=== PATIENT | male | born 1940 | race Caucasian/White ===

== ENCOUNTER → 2016-07-28 | Outpatient (REF) | payer BC, MEDICARE ==
[~2016-07-28] MED LIST: ACET500C PO; ALBU83IN INH; AMLO5TAB2 PO; ASPI81TA85 PO; ATEN50TA2 PO; ATOR40TA PO; BREO1INH IN; CEFT250T8 PO; DOCU10CA PO; HYDR-4266 PO; HYDR50TAB PO; IPRASOL4 IN; ISOS30TA4 PO; LEVO500T32 PO; LEVO750T33 PO; LISI-538 PO; NORV5TAB PO; PANT40TA2 PO; PLAV75TA38 PO; PRED10TA PO; PRED20TA PO; PRED20TAB PO; PREDOPD OD; PROA1AER IN; PROL0.072 OD; SPIR12.9 INH; SYMB80INH INH; TENO1TAB4 PO; TYLE325T5 PO; ZEST1TAB7 PO
[2016-07-28 20:21] LABS: BASO # 0.1 K/mm3 (0.0-0.2); BASO % 1.3 % (0.0-1.0); EOS # 0.2 K/mm3 (0.0-0.50); EOS % 3.5 % (0.0-3.0); LARGE UNSTAINED CELL # 0.2 K/mm3 (0.0-0.4); LARGE UNSTAINED CELL % 2.3 % (0.0-4.0); LYMPH # 1.3 K/mm3 (1.5-4.5); LYMPH % 15.9 % (24.0-44.0); MEAN CORPUSCULAR HEMOGLOBIN 28.3 pg (27.0-33.0); MEAN CORPUSCULAR HGB CONC 31.4 g/dl (32.0-36.5); MEAN CORPUSCULAR VOLUME 89.9 fl (80.0-96.0); MONO # 0.4 K/mm3 (0.0-0.8); MONO % 6.1 % (0.0-5.0); PLATELET COUNT, AUTOMATED 266 k/mm3 (150-450); RED CELL DISTRIBUTION WIDTH 18.4 % (11.5-14.5); WHITE BLOOD COUNT 7.1 K/mm3 (4.0-10.0)
[2016-07-28 20:27] LABS: ALBUMIN 3.6 GM/DL (3.2-5.2); ALBUMIN/GLOBULIN RATIO 1.29 (1.00-1.93); BILIRUBIN,TOTAL 0.3 MG/DL (0.2-1.0); CALCIUM LEVEL 8.4 MG/DL (8.8-10.2); CREATININE FOR GFR 1.49 MG/DL (0.70-1.30); GLOMERULAR FILTRATION RATE 48.7 (>42); POTASSIUM SERUM 4.1 MEQ/L (3.5-5.1); TOTAL PROTEIN 6.4 GM/DL (6.4-8.2)
== END ==
LOC: M LABDRWAD 19:51
PROVIDERS: ATTEND Internal Medicine
DX: C67.9 Malignant neoplasm of bladder, unspecified (principal)

== ENCOUNTER → 2016-09-02 | Outpatient (REF) | payer BC ==
[2016-09-02 20:51] LABS: CALCIUM LEVEL 8.7 MG/DL (8.8-10.2); CREATININE FOR GFR 1.72 MG/DL (0.70-1.30); GLOMERULAR FILTRATION RATE 41.3 (>42); POTASSIUM SERUM 4.2 MEQ/L (3.5-5.1)
== END ==
LOC: M SFHCLERA 15:50
PROVIDERS: ATTEND Physician Assistant Medical
DX: R42 Dizziness and giddiness (principal); R53.1 Weakness

== ENCOUNTER → 2016-09-03 | Outpatient (CLI) | payer BC ==
--- NOTE | 2016-09-04 06:02 | REP ---
Clinical: Abdominal aortic aneurysm. Technique: Real time gustafson scale ultrasound examination using curved array transducer. Comparison: 11/07/2015. Findings: Ultrasound examination demonstrates stable infrarenal abdominal aortic aneurysm measuring 3.5 x 3.2 cm diameter and 4.5 cm in length. Aneurysm originates approximately 2-3 cm from the main renal arteries and terminates before the level of bifurcations common iliac arteries. No periaortic fluid or abnormalities are appreciated. Proximal aorta 2.4 x 3.3 cm. Mid aorta 3.5 x 3.2 cm. Distal aorta 2.2 x 2.0 cm. Right iliac artery 1.6 x 1.3 cm. Left iliac artery 1.4 x 1.3 cm. Impression: Stable infrarenal abdominal aortic aneurysm. Signed by Naren Zarate MD 09/04/2016 05:53 A
== END ==
LOC: M RAD 08:09
PROVIDERS: ATTEND Physician Assistant Medical
DX: I71.4 Abdominal aortic aneurysm, without rupture (principal)

== ENCOUNTER → 2016-09-04 | Outpatient (CLI) | payer BC ==
--- NOTE | 2016-09-04 12:08 | REP ---
REASON FOR EXAM: Back pain and lower extremity radicular symptoms. COMPARISON: None. There is loss of disc hydrational signal which is moderate at L3-4 with near complete loss of disc space signal at L4-5 and L5-S1 with moderate disc space height loss at those levels. The remainder of the disc spaces are well hydrated and of normal appearing height. There is no abnormal signal seen in the imaged portion of the spinal cord. Modic type I end plate changes are seen at the L4-5 level. At the L1-2 level, there is a slight broad based annular bulge. There is no disc herniation, foraminal narrowing or central canal stenosis. At the L2-3 level, there is a moderate broad based annular bulge which flattens and straightens the anterior thecal sac causing minimal central canal stenosis. There is no disc herniation or foraminal narrowing. Mild degenerative facet joint changes are present bilaterally. At the L3-4 level, there is a moderate to large broad based annular bulge which flattens and straightens the anterior thecal sac. This is seen in conjunction with degenerative facet joint changes bilaterally and thickening of the ligamentum flava which in concert are causing mild central canal stenosis. The broad based discogenic change is seen in conjunction with an annular rent, however, there is no disc extrusion. There is no neural foraminal narrowing. At the L4-5 level, there is a large asymmetric broad based annular bulge with a central focal subligamentous disc protrusion which causes a mild concave anterior deformity of the anterior thecal sac. This is seen in conjunction with degenerative facet joint changes bilaterally and thickening of the ligamentum flava. These factors in concert are causing bilateral foraminal stenosis, right greater than left being moderate with left foraminal stenosis being mild. Discogenic changes and arthritic facet joint changes are causing moderate to severe central canal stenosis. There is no evidence of extruded disc material. At the L5-S1 level, there is a large asymmetric broad based annular bulge which is contacting the exited L5 nerves and causing slight displacement of the left L5 nerve. The broad based bulge is seen in conjunction with a central focal subligamentous disc protrusion which is causing a mild concave anterior deformity of the anterior thecal sac. Degenerative facet joint changes are present at this level bilaterally with thickening of the ligamentum flava and the factors in concert are causing mild to moderate central canal stenosis. There is no evidence of a maxwell disc extrusion. IMPRESSION: Multilevel discogenic changes and related findings as described above. Signed by Cali Man DO 09/04/2016 12:29 P
--- NOTE | 2016-09-04 12:19 | REP ---
REASON FOR EXAM: Dizziness and confusion. No prior Brain MRIs for comparison. There is magnetic susceptibility artifact in the central frontal region due to a metallic imbedded in the skin and seen on previous CT of 06/02/2014. The examination was performed in my absentia and without my knowledge. The aforementioned magnetic susceptibility artifact obscures the midline frontal lobes on all sequences. The ventricles and sulci are within normal limits for the patient's age. There are no extra-axial fluid collections. There is no shift in the midline structures. Scattered T2 and FLAIR hypersignal intensities are seen in the deep cerebral white matter and paraventricular regions. These are nonspecific. No abnormal signal is seen on the DWI or ADC mapped imaged that would be considered consistent with an area of restricted effusion from an acute stroke. There is no evidence of a intracranial hemorrhage. The orbital and petrous structures, cerebellopontine angles, and posterior fossa are within normal limits. The sella turcica, cavernous and paracavernous structures are within normal limits. There is T2-hypersignal in the maxillary antra and sphenoid sinuses. The mastoid air cells appear clear. IMPRESSION: 1. Deep white matter ischemic changes suspected as described above. 2. Paranasal sinus disease with mucosal thickening. Correlate clinically to rule out the possibility of acute sinusitis. 3. Other findings as described above. Signed by Cali Man DO 09/04/2016 12:29 P
== END ==
LOC: M RAD 08:56
PROVIDERS: ATTEND Physician Assistant Medical
DX: R42 Dizziness and giddiness (principal); R53.1 Weakness; R20.2 Paresthesia of skin

== ENCOUNTER → 2016-11-21 | Outpatient (REF) | payer BC ==
[~2016-11-21] MED LIST changes: -ATOR40TA PO; +ATOR40TA75 PO; +HYDR-3910 PO; -HYDR-4266 PO; +LEVO500T3 PO; -LEVO500T32 PO; +LEVO750T13 PO; -LEVO750T33 PO; +PLAV1TAB2 PO; -PLAV75TA38 PO; -PROA1AER IN; +PROAAER10 IN
[2016-11-21 12:42] LABS: BASO # 0.1 K/mm3 (0.0-0.2); BASO % 1.2 % (0.0-1.0); EOS # 0.1 K/mm3 (0.0-0.50); EOS % 2.3 % (0.0-3.0); LARGE UNSTAINED CELL # 0.2 K/mm3 (0.0-0.4); LARGE UNSTAINED CELL % 3.1 % (0.0-4.0); LYMPH # 0.9 K/mm3 (1.5-4.5); LYMPH % 15.5 % (24.0-44.0); MEAN CORPUSCULAR HEMOGLOBIN 32.1 pg (27.0-33.0); MEAN CORPUSCULAR HGB CONC 33.1 g/dl (32.0-36.5); MONO # 0.3 K/mm3 (0.0-0.8); MONO % 5.6 % (0.0-5.0); NEUTROPHILS % 72.2 % (36.0-66.0); PLATELET COUNT, AUTOMATED 167 k/mm3 (150-450); RED CELL DISTRIBUTION WIDTH 18.8 % (11.5-14.5); WHITE BLOOD COUNT 5.5 K/mm3 (4.0-10.0)
[2016-11-21 13:12] LABS: ALBUMIN 3.8 GM/DL (3.2-5.2); ALBUMIN/GLOBULIN RATIO 1.46 (1.00-1.93); BILIRUBIN,TOTAL 0.4 MG/DL (0.2-1.0); CALCIUM LEVEL 8.8 MG/DL (8.8-10.2); CREATININE FOR GFR 1.25 MG/DL (0.70-1.30); GLOMERULAR FILTRATION RATE 59.5 (>42); POTASSIUM SERUM 4.2 MEQ/L (3.5-5.1); TOTAL PROTEIN 6.4 GM/DL (6.4-8.2)
== END ==
LOC: M SFHCADAM 07:52
PROVIDERS: ATTEND Physician Assistant Medical
DX: I25.10 Atherosclerotic heart disease of native coronary artery without angina pectoris (principal); N18.3 Chronic kidney disease, stage 3 (moderate); N18.9 Chronic kidney disease, unspecified; K21.9 Gastro-esophageal reflux disease without esophagitis

== ENCOUNTER → 2017-01-07 | Outpatient (CLI) | payer BC ==
--- NOTE | 2017-01-07 10:26 | REP ---
ULTRASOUND OF THE ABDOMINAL AORTA: Real-time sonographic evaluation of the abdominal aorta performed. Comparison 09/03/2016. Once again there is mild aneurysmal dilatation of the mid abdominal aorta maximum AP diameter 3.9 cm in transverse 3.3 cm. Findings are similar to the prior exam. More proximally just below the diaphragm is maximum AP diameter is 2.6 cm, at the level of the renal artery is 2.2 cm and distally 2.5 cm. Common iliac arteries are slightly ectatic both measuring 1.3 cm in maximum AP diameter. IMPRESSION: No significant change in the mild aneurysmal dilatation of the mid abdominal aorta compared to prior study of 09/03/2016. Signed by Ralf Fritz MD 01/07/2017 04:42 P
== END ==
LOC: M RAD 08:56
PROVIDERS: ATTEND Surgery
DX: I71.4 Abdominal aortic aneurysm, without rupture (principal)

== ENCOUNTER 2017-03-01 20:08 | Emergency (ER) | payer BC ==
[~2017-03-01] VITALS: Ht 172.7 cm; Wt 84.1 kg
[2017-03-01] MEDS ORDERED: CHLO25TA PO (20:24)
[2017-03-01] MEDS ORDERED: LEVO25TA5 (20:24)
[2017-03-01 20:43] LABS: MICROSCOPIC INDICATED? MAN YES (NO)
[2017-03-01 20:46] LABS: BACTERIA, URINE SMALL AMOUNT; HYALINE CAST, URINE NONE SEEN /lpf (0-1); MICROSCOPIC EXAM PERFORMED; RBC, URINE TNTC /hpf (0-3); SQUAMOUS EPITHELIAL CELL URINE NONE SEEN /hpf (SMALL AMT)
[2017-03-01 21:04] LABS: BASO # 0.1 10^3/uL (0.0-0.2); EOS # 0.2 10^3/uL (0.0-0.50); EOS % 2.1 % (0.0-3.0); IMMATURE GRANULOCYTE % 0.3 % (0-0); LYMPH % 10.6 % (24.0-44.0); MEAN CORPUSCULAR HEMOGLOBIN 33.8 pg (27.0-33.0); MEAN CORPUSCULAR HGB CONC 32.4 g/dl (32.0-36.5); MEAN CORPUSCULAR VOLUME 104.3 fl (80.0-96.0); MONO # 0.6 10^3/uL (0.0-0.8); MONO % 6.6 % (0.0-5.0); NEUTROPHILS # 7.6 10^3/uL (1.8-7.7); NEUTROPHILS % 79.4 % (36.0-66.0); PLATELET COUNT, AUTOMATED 181 10^3/uL (150-450); RED CELL DISTRIBUTION WIDTH 14.9 % (11.5-14.5); WHITE BLOOD COUNT 9.6 10^3/uL (4.0-10.0)
[2017-03-01 21:15] LABS: INR 0.93
[2017-03-01 21:24] LABS: ANION GAP 4 MEQ/L (8-16); BLOOD UREA NITROGEN 26 MG/DL (7-18); CALCIUM LEVEL 8.6 MG/DL (8.8-10.2); CARBON DIOXIDE LEVEL 28 MEQ/L (21-32); CHLORIDE LEVEL 113 MEQ/L (98-107); CREATININE FOR GFR 1.22 MG/DL (0.70-1.30); GLOMERULAR FILTRATION RATE > 60.0 (>42); GLUCOSE, FASTING 117 MG/DL (83-110); SODIUM LEVEL 145 MEQ/L (136-145)
--- NOTE | 2017-03-01 22:30 | REPUSA ---
CT of the abdomen and pelvis without contrast Clinical statement: Pain. Technique: Multiple axial CT images were obtained from the base of the lungs to the floor of the pelv is utilizing 5 mm axial slices without administration of contrast. Coronal and sagittal reconstructio ns were also obtained. Comparison: 10/11/2015. Findings: Chest: The visualized lung bases are clear. Abdomen: The kidneys are normal in size bilaterally. There is a hyperdense lesion in the upper pole o f the left kidney measuring 2.0 x 1.8 cm. There is no evidence of hydronephrosis or nephrolithiasis. The liver, spleen, pancreas, gallbladder and adrenal glands are unremarkable. The aorta demonstrates an infrarenal abdominal aortic aneurysm measuring 3.3 x 3.3 cm. This is stable. There is no abdominal lymphadenopathy or ascites. Pelvis: The bowel is unremarkable, with no obstructive or inflammatory changes. The urinary bladder i s within normal limits. There is no pelvic lymphadenopathy or ascites. The other pelvic structures ap pear unremarkable. Bones: There are no suspicious osseous abnormalities seen. There is moderate degenerative disc diseas e at L4/L5 and L5/S1. Impression: 1. No obstructive or inflammatory bowel changes. 2. Hyperdense lesion in the upper pole of the left kidney is stable, most consistent with a complex r enal cyst. No evidence of hydronephrosis or nephrolithiasis. 3. Infrarenal abdominal aortic aneurysm measuring up to 3.3 cm and is stable. 4. Moderate degenerative disc disease at L4/L5 and L5/S1.
[2017-03-01] MEDS ORDERED: BACT800T5 PO (23:25)
[2017-03-01] MEDS ORDERED: PHEN-500 PO (23:25)
[2017-03-01] MEDS ORDERED: PHENAZOPYRIDINE 100 MG TAB PO ONE (23:30)
[2017-03-01] MEDS ORDERED: BACTRIM 160MG/800MG DS TAB PO ONE (23:30)
[2017-03-01 23:31] VITALS: BP 157/60
== END 2017-03-01 23:49 | disposition home or self-care (01) ==
LOC: M ED 20:08
DX: N39.0 Urinary tract infection, site not specified (principal); R31.9 Hematuria, unspecified; I12.9 Hypertensive chronic kidney disease with stage 1 through stage 4 chronic kidney disease, or unspecified chronic kidney disease; J44.9 Chronic obstructive pulmonary disease, unspecified; I25.9 Chronic ischemic heart disease, unspecified; K21.9 Gastro-esophageal reflux disease without esophagitis; N18.2 Chronic kidney disease, stage 2 (mild); E03.9 Hypothyroidism, unspecified; N40.1 Benign prostatic hyperplasia with lower urinary tract symptoms; Z85.46 Personal history of malignant neoplasm of prostate; Z85.51 Personal history of malignant neoplasm of bladder; Z95.5 Presence of coronary angioplasty implant and graft; Z79.899 Other long term (current) drug therapy; Z79.82 Long term (current) use of aspirin; F17.210 Nicotine dependence, cigarettes, uncomplicated

== ENCOUNTER → 2017-03-04 | Outpatient (CLI) | payer BC ==
[~2017-03-04] MED LIST changes: +BACT800T5 PO; +CHLO25TA PO; +LEVO25TA5; +PHEN-500 PO
--- NOTE | 2017-03-05 07:14 | REP ---
REASON FOR EXAM: Renal cysts. Right kidney measures 11.2 x 4.8 x 6 cm. There are no cystic or solid masses. There is no hydronephrosis. Cortical and medullary differentiation is preserved. Left kidney measures 11.2 x 4.9 x 5.2 cm. There are no solid masses. There is no hydronephrosis. There is good medullary differentiation. Seen in the superior pole, there is a nearly anechoic structure which measures 2.2 x 1.8 x 1.8 cm exhibiting some posterior wall enhancement and increased through transmission. When this examination is compared to the prior examination of 10/09/2015, there is no significant change in the appearance of this somewhat complex cyst. IMPRESSION: No significant change from the prior exam as described above. Signed by Cali Man DO 03/06/2017 01:53 P
== END ==
LOC: M RAD 16:29
PROVIDERS: ATTEND Urology
DX: N28.1 Cyst of kidney, acquired (principal)

== ENCOUNTER → 2017-05-18 | Outpatient (REF) | payer BC ==
[2017-05-18 20:41] LABS: FREE T4 1.17 NG/DL (0.76-1.46)
== END ==
LOC: M SFHCADAM 15:53
DX: E03.9 Hypothyroidism, unspecified (principal)
CPT/HCPCS: 84443

== ENCOUNTER → 2017-11-19 | Outpatient (REF) | payer BC ==
[2017-11-19 18:56] LABS: ALBUMIN 3.4 GM/DL (3.2-5.2); ALBUMIN/GLOBULIN RATIO 1.31 (1.00-1.93); ALKALINE PHOSPHATASE 71 U/L (45-117); ALT/SGPT 18 U/L (12-78); ANION GAP 10 MEQ/L (8-16); AST/SGOT 12 U/L (7-37); BILIRUBIN,TOTAL 0.4 MG/DL (0.2-1.0); BLOOD UREA NITROGEN 30 MG/DL (7-18); CALCIUM LEVEL 9.1 MG/DL (8.8-10.2); CARBON DIOXIDE LEVEL 24 MEQ/L (21-32); CHLORIDE LEVEL 115 MEQ/L (98-107); CREATININE FOR GFR 1.41 MG/DL (0.70-1.30); FREE T4 1.18 NG/DL (0.76-1.46); GLOMERULAR FILTRATION RATE 51.6 (>42); GLUCOSE, FASTING 94 MG/DL (70-100); POTASSIUM SERUM 4.1 MEQ/L (3.5-5.1); SODIUM LEVEL 149 MEQ/L (136-145)
[2017-11-19 20:08] LABS: BASO # 0.1 10^3/uL (0.0-0.2); BASO % 1.1 % (0.0-1.0); EOS # 0.1 10^3/uL (0.0-0.50); HEMOGLOBIN 8.5 g/dl (13.5-17.5); IMMATURE GRANULOCYTE % 0.3 % (0-3.0); LYMPH # 0.8 10^3/uL (1.5-4.5); LYMPH % 12.1 % (24.0-44.0); MEAN CORPUSCULAR HEMOGLOBIN 30.7 pg (27.0-33.0); MEAN CORPUSCULAR HGB CONC 30.4 g/dl (32.0-36.5); MEAN CORPUSCULAR VOLUME 101.1 fl (80.0-96.0); MONO # 0.5 10^3/uL (0.0-0.8); MONO % 7.6 % (0.0-5.0); NEUTROPHILS % 76.9 % (36.0-66.0); PLATELET COUNT, AUTOMATED 157 10^3/uL (150-450); RED BLOOD COUNT 2.77 10^6/uL (4.30-6.10); RED CELL DISTRIBUTION WIDTH 17.4 % (11.5-14.5); WHITE BLOOD COUNT 6.5 10^3/uL (4.0-10.0)
== END ==
LOC: M SFHCADAM 16:22
DX: E03.9 Hypothyroidism, unspecified (principal)
CPT/HCPCS: 84443

== ENCOUNTER 2017-11-23 14:47 | Inpatient (IN) | payer BC ==
[2017-11-23 15:47] LABS: BASO % 0.1 % (0.0-1.0); HEMATOCRIT 27.7 % (42.0-52.0); HEMOGLOBIN 8.5 g/dl (13.5-17.5); IMMATURE GRANULOCYTE % 0.6 % (0-3.0); LYMPH % 2.9 % (24.0-44.0); MEAN CORPUSCULAR HEMOGLOBIN 31.4 pg (27.0-33.0); MEAN CORPUSCULAR HGB CONC 30.7 g/dl (32.0-36.5); MEAN CORPUSCULAR VOLUME 102.2 fl (80.0-96.0); MONO # 0.3 10^3/uL (0.0-0.8); MONO % 3.6 % (0.0-5.0); NEUTROPHILS # 7.4 10^3/uL (1.8-7.7); NEUTROPHILS % 92.8 % (36.0-66.0); PLATELET COUNT, AUTOMATED 170 10^3/uL (150-450); RED BLOOD COUNT 2.71 10^6/uL (4.30-6.10); RED CELL DISTRIBUTION WIDTH 17.3 % (11.5-14.5)
[2017-11-23] MEDS ORDERED: GI COCKTAIL 50ML BTL(HYOSCYAMINE/MAALOX/LIDOCAINE VISCOUS)(1:3:1) As Ordered (15:50)
[2017-11-23 16:04] LABS: LYMPH # 0.2 10^3/uL (1.5-4.5); POSITIVE DIFF POS FLAG
[2017-11-23 16:11] LABS: INR 1.07
[2017-11-23 16:12] LABS: PARTIAL THROMBOPLASTIN TIME 28.1 SECONDS (25.4-37.6)
[2017-11-23 17:17] LABS: ALBUMIN 3.4 GM/DL (3.2-5.2); ALKALINE PHOSPHATASE 71 U/L (45-117); ALT/SGPT 23 U/L (12-78); ANION GAP 8 MEQ/L (8-16); AST/SGOT 15 U/L (7-37); BILIRUBIN,DIRECT 0.2 MG/DL (0.0-0.2); BILIRUBIN,TOTAL 0.5 MG/DL (0.2-1.0); BLOOD UREA NITROGEN 32 MG/DL (7-18); CALCIUM LEVEL 8.6 MG/DL (8.8-10.2); CARBON DIOXIDE LEVEL 24 MEQ/L (21-32); CHLORIDE LEVEL 113 MEQ/L (98-107); CPK CREATINE PHOSPHOKINASE 94 U/L (39-308); CREATININE FOR GFR 1.27 MG/DL (0.70-1.30); GLOMERULAR FILTRATION RATE 58.2 (>42); MB/CK RELATIVE INDEX 4.04 (< OR =4); NT-PRO BNP 5533 PG/ML (<450); POTASSIUM SERUM 4.3 MEQ/L (3.5-5.1); SODIUM LEVEL 145 MEQ/L (136-145); THYROXINE (T4) 10.1 UG/DL (4.5-12.0); TOTAL PROTEIN 6.6 GM/DL (6.4-8.2); TROPONIN I 0.77 NG/ML (< 0.10)
[2017-11-23 17:20] LABS: LACTIC ACID SEPSIS PROTOCOL 2.1 MMOL/L (0.4-2.0)
[2017-11-23 17:41] LABS: GLUCOSE, FASTING 89 MG/DL (70-100)
[2017-11-23 18:16] LABS: LIPASE 113 U/L (73-393)
[2017-11-23 18:17] LABS: ALBUMIN/GLOBULIN RATIO 1.06 (1.00-1.93)
[2017-11-23 20:15] LABS: CPK CREATINE PHOSPHOKINASE 88 U/L (39-308); MAGNESIUM LEVEL 2.5 MG/DL (1.8-2.4); MB/CK RELATIVE INDEX 4.32 (< OR =4); TROPONIN I 0.81 NG/ML (< 0.10)
[2017-11-23] MEDS: ALBUTEROL SULFATE 2.5 MG/0.5 ML INH NEB SOLN INH (20:58)
[2017-11-23] MEDS: FUROSEMIDE 40 MG/4 ML VIAL (J1940) IV (21:10)
[2017-11-23] MEDS: ASPIRIN 325 MG TAB PO (21:10)
[2017-11-23] MEDS: methylPREDNISolone INJ 125 MG/2 ML VIAL (J2930) IV (21:15)
[2017-11-24 01:37] LABS: CPK CREATINE PHOSPHOKINASE 89 U/L (39-308); MB/CK RELATIVE INDEX 5.39 (< OR =4); TROPONIN I 0.93 NG/ML (< 0.10)
[2017-11-24] MEDS ORDERED: ACETAMINOPHEN TAB 650MG DOSE (2X325MG) PO (03:15)
[2017-11-24] MEDS: MULTIVITAMINS/MINERALS THERAP 1 TAB PO ×2 (05:25→20:30)
[2017-11-24] MEDS: FERROUS SULFATE 325MG TAB PO (05:25)
[2017-11-24 07:34] LABS: HEMATOCRIT 27.6 % (42.0-52.0); HEMOGLOBIN 8.5 g/dl (13.5-17.5); MEAN CORPUSCULAR HEMOGLOBIN 31.3 pg (27.0-33.0); MEAN CORPUSCULAR HGB CONC 30.8 g/dl (32.0-36.5); MEAN CORPUSCULAR VOLUME 101.5 fl (80.0-96.0); PLATELET COUNT, AUTOMATED 173 10^3/uL (150-450); RED BLOOD COUNT 2.72 10^6/uL (4.30-6.10); RED CELL DISTRIBUTION WIDTH 17.1 % (11.5-14.5); WHITE BLOOD COUNT 5.3 10^3/uL (4.0-10.0)
[2017-11-24] MEDS: IPRATROPIUM 0.5MG/ALBUTEROL 2.5MG INH SOL UD 3ML (DUONEB)(J7620) NEB ×4 (07:59→20:18)
[2017-11-24 08:31] LABS: ANION GAP 8 MEQ/L (8-16); BLOOD UREA NITROGEN 32 MG/DL (7-18); CALCIUM LEVEL 8.4 MG/DL (8.8-10.2); CARBON DIOXIDE LEVEL 26 MEQ/L (21-32); CHLORIDE LEVEL 109 MEQ/L (98-107); GLOMERULAR FILTRATION RATE 56.7 (>42); GLUCOSE, FASTING 137 MG/DL (70-100); IRON (FE) 81 UG/DL (65-175); MAGNESIUM LEVEL 2.3 MG/DL (1.8-2.4); POTASSIUM SERUM 4.2 MEQ/L (3.5-5.1); SODIUM LEVEL 143 MEQ/L (136-145); TOTAL IRON BINDING CAPACITY 270 UG/DL (250-450)
[2017-11-24 08:32] LABS: CPK CREATINE PHOSPHOKINASE 83 U/L (39-308)
[2017-11-24 08:38] LABS: ADD MANUAL DIFFER YES; DIFF SLIDE NUMBER 116; POSITIVE DIFF POS FLAG
[2017-11-24 08:41] LABS: ATYPICAL LYMPH 2 % (0-5); LYMPHOCYTES 5 % (16-52); MONOCYTES 1 % (0-8); NEUTROPHILS 92 % (35-75); PLATELET ESTIMATE NORMAL (NORMAL)
[2017-11-24 08:42] LABS: HYPOCHROMASIA 1+; POLYCHROMASIA 1+; SCHISTOCYTES 1+
[2017-11-24] MEDS ORDERED: ALBUTEROL SULFATE 2.5 MG/0.5 ML INH NEB SOLN INH (09:00)
[2017-11-24] MEDS ORDERED: PANTOPRAZOLE 40MG TAB (PROTONIX) PO (09:00)
[2017-11-24] MEDS: ATORVASTATIN 20 MG TAB PO (10:12)
[2017-11-24] MEDS: ASPIRIN 81 MG ENTERIC TAB PO (10:12)
[2017-11-24] MEDS: PANTOPRAZOLE 40MG TAB (PROTONIX) PO (10:13)
[2017-11-24] MEDS: LEVOTHYROXINE 50MCG TABLET (0.05MG) PO (10:13)
[2017-11-24] MEDS: INDAPAMIDE 1.25MG TABLET PO (10:13)
[2017-11-24] MEDS: FUROSEMIDE 40 MG/4 ML VIAL (J1940) IV ×2 (10:14→20:31)
[2017-11-24] MEDS: CLOPIDOGREL 75 MG TAB PO (10:14)
[2017-11-24 17:20] LABS: RETIC HEMOGLOBIN EQUIVALENT 24.1 pg (24-36); RETICULOCYTE # 148.2 10^9/L (17-77); RETICULOCYTE % 5.4 % (0.5-1.5)
[2017-11-24 17:49] LABS: CPK CREATINE PHOSPHOKINASE 73 U/L (39-308); MB/CK RELATIVE INDEX 5.21 (< OR =4); TROPONIN I 1.08 NG/ML (< 0.10)
[2017-11-24] MEDS: BISACODYL 5 MG TAB PO (18:33)
[2017-11-24] MEDS: PANTOPRAZOLE 40MG INJ (PROTONIX) (C9113) IV (20:31)
[2017-11-24] MEDS: GOLYTELY SOLN 4000 ML BTL PO (20:31)
[2017-11-25 05:41] LABS: BASO % 0.4 % (0.0-1.0); EOS % 0.2 % (0.0-3.0); HEMATOCRIT 27.3 % (42.0-52.0); HEMOGLOBIN 8.5 g/dl (13.5-17.5); IMMATURE GRANULOCYTE % 0.5 % (0-3.0); LYMPH # 0.7 10^3/uL (1.5-4.5); LYMPH % 7.8 % (24.0-44.0); MEAN CORPUSCULAR HEMOGLOBIN 30.4 pg (27.0-33.0); MEAN CORPUSCULAR HGB CONC 31.1 g/dl (32.0-36.5); MEAN CORPUSCULAR VOLUME 97.5 fl (80.0-96.0); MONO # 0.7 10^3/uL (0.0-0.8); MONO % 7.2 % (0.0-5.0); NEUTROPHILS % 83.9 % (36.0-66.0); PLATELET COUNT, AUTOMATED 187 10^3/uL (150-450); RED CELL DISTRIBUTION WIDTH 16.6 % (11.5-14.5); WHITE BLOOD COUNT 9.5 10^3/uL (4.0-10.0)
[2017-11-25 05:56] LABS: ANION GAP 6 MEQ/L (8-16); BLOOD UREA NITROGEN 38 MG/DL (7-18); CALCIUM LEVEL 8.6 MG/DL (8.8-10.2); CARBON DIOXIDE LEVEL 30 MEQ/L (21-32); CHLORIDE LEVEL 107 MEQ/L (98-107); CREATININE FOR GFR 1.61 MG/DL (0.70-1.30); GLOMERULAR FILTRATION RATE 44.3 (>42); GLUCOSE, FASTING 95 MG/DL (70-100); POTASSIUM SERUM 3.4 MEQ/L (3.5-5.1); SODIUM LEVEL 143 MEQ/L (136-145)
[2017-11-25] MEDS: IPRATROPIUM 0.5MG/ALBUTEROL 2.5MG INH SOL UD 3ML (DUONEB)(J7620) NEB ×4 (07:29→20:40)
[2017-11-25] MEDS: INFLUENZA VIRUS VACCINE HIGH DOSE 0.5 ML SYRINGE (90662) IM (09:00)
[2017-11-25] MEDS ORDERED: SLF 3 ML SYR IV (09:00)
[2017-11-25] MEDS: LEVOTHYROXINE 50MCG TABLET (0.05MG) PO (10:15)
[2017-11-25] MEDS: ATORVASTATIN 20 MG TAB PO (10:15)
[2017-11-25] MEDS: PANTOPRAZOLE 40MG INJ (PROTONIX) (C9113) IV ×2 (10:15→21:04)
[2017-11-25 11:42] LABS: TROPONIN I 0.99 NG/ML (< 0.10)
[2017-11-25] MEDS: SLF 3 ML SYR IV ×2 (14:00→22:00)
[2017-11-25] MEDS ORDERED: fentaNYL 100 MCG/2 ML INJECTION (J3010) As Ordered (14:28)
[2017-11-25] MEDS ORDERED: PROPOFOL 200 MG/20 ML VIAL As Ordered ×2 (14:39→15:24)
[2017-11-25] MEDS ORDERED: LIDOCAINE 2% INJ 100 MG/5 ML SDV (FOR ANES.) As Ordered (14:39)
[2017-11-25] MEDS: MULTIVITAMINS/MINERALS THERAP 1 TAB PO (21:04)
[2017-11-26] MEDS: SLF 3 ML SYR IV ×4 (05:05→21:26)
[2017-11-26 06:03] LABS: BASO % 0.7 % (0.0-1.0); EOS # 0.1 10^3/uL (0.0-0.50); EOS % 1.5 % (0.0-3.0); HEMATOCRIT 26.9 % (42.0-52.0); HEMOGLOBIN 8.3 g/dl (13.5-17.5); IMMATURE GRANULOCYTE % 0.4 % (0-3.0); LYMPH # 0.7 10^3/uL (1.5-4.5); LYMPH % 11.8 % (24.0-44.0); MEAN CORPUSCULAR HEMOGLOBIN 30.1 pg (27.0-33.0); MEAN CORPUSCULAR HGB CONC 30.9 g/dl (32.0-36.5); MEAN CORPUSCULAR VOLUME 97.5 fl (80.0-96.0); MONO # 0.5 10^3/uL (0.0-0.8); MONO % 8.5 % (0.0-5.0); NEUTROPHILS # 4.2 10^3/uL (1.8-7.7); NEUTROPHILS % 77.1 % (36.0-66.0); PLATELET COUNT, AUTOMATED 171 10^3/uL (150-450); RED BLOOD COUNT 2.76 10^6/uL (4.30-6.10); RED CELL DISTRIBUTION WIDTH 16.3 % (11.5-14.5); WHITE BLOOD COUNT 5.5 10^3/uL (4.0-10.0)
[2017-11-26 06:46] LABS: ANION GAP 4 MEQ/L (8-16); BLOOD UREA NITROGEN 27 MG/DL (7-18); CALCIUM LEVEL 8.2 MG/DL (8.8-10.2); CARBON DIOXIDE LEVEL 31 MEQ/L (21-32); CHLORIDE LEVEL 107 MEQ/L (98-107); CREATININE FOR GFR 1.25 MG/DL (0.70-1.30); GLOMERULAR FILTRATION RATE 59.3 (>42); GLUCOSE, FASTING 87 MG/DL (70-100); POTASSIUM SERUM 3.7 MEQ/L (3.5-5.1); SODIUM LEVEL 142 MEQ/L (136-145)
[2017-11-26] MEDS: IPRATROPIUM 0.5MG/ALBUTEROL 2.5MG INH SOL UD 3ML (DUONEB)(J7620) NEB ×4 (07:56→20:13)
[2017-11-26] MEDS: PANTOPRAZOLE 40MG TAB (PROTONIX) PO (09:01)
[2017-11-26] MEDS: ASPIRIN 81 MG ENTERIC TAB PO (09:01)
[2017-11-26] MEDS: LEVOTHYROXINE 50MCG TABLET (0.05MG) PO (09:01)
[2017-11-26] MEDS: FLUCONAZOLE 100 MG TAB PO (09:01)
[2017-11-26] MEDS: INDAPAMIDE 1.25MG TABLET PO (09:37)
[2017-11-26] MEDS: MULTIVITAMINS/MINERALS THERAP 1 TAB PO (20:24)
[2017-11-27] MEDS: SLF 3 ML SYR IV (04:54)
[2017-11-27] MEDS: IPRATROPIUM 0.5MG/ALBUTEROL 2.5MG INH SOL UD 3ML (DUONEB)(J7620) NEB (07:14)
[2017-11-27 07:17] LABS: BASO % 0.6 % (0.0-1.0); EOS # 0.2 10^3/uL (0.0-0.50); EOS % 2.6 % (0.0-3.0); HEMATOCRIT 27.8 % (42.0-52.0); HEMOGLOBIN 8.8 g/dl (13.5-17.5); IMMATURE GRANULOCYTE % 0.3 % (0-3.0); LYMPH # 0.7 10^3/uL (1.5-4.5); LYMPH % 10.5 % (24.0-44.0); MEAN CORPUSCULAR HEMOGLOBIN 30.3 pg (27.0-33.0); MEAN CORPUSCULAR HGB CONC 31.7 g/dl (32.0-36.5); MEAN CORPUSCULAR VOLUME 95.9 fl (80.0-96.0); MONO # 0.5 10^3/uL (0.0-0.8); MONO % 8.3 % (0.0-5.0); NEUTROPHILS % 77.7 % (36.0-66.0); PLATELET COUNT, AUTOMATED 179 10^3/uL (150-450); RED CELL DISTRIBUTION WIDTH 16.4 % (11.5-14.5); WHITE BLOOD COUNT 6.5 10^3/uL (4.0-10.0)
[2017-11-27 07:33] LABS: ANION GAP 6 MEQ/L (8-16); BLOOD UREA NITROGEN 28 MG/DL (7-18); CALCIUM LEVEL 8.4 MG/DL (8.8-10.2); CARBON DIOXIDE LEVEL 29 MEQ/L (21-32); CHLORIDE LEVEL 106 MEQ/L (98-107); CREATININE FOR GFR 1.37 MG/DL (0.70-1.30); GLOMERULAR FILTRATION RATE 53.4 (>42); GLUCOSE, FASTING 86 MG/DL (70-100); POTASSIUM SERUM 3.9 MEQ/L (3.5-5.1); SODIUM LEVEL 141 MEQ/L (136-145)
[2017-11-27] MEDS: PANTOPRAZOLE 40MG TAB (PROTONIX) PO (09:19)
[2017-11-27] MEDS: FLUCONAZOLE 100 MG TAB PO (09:20)
[2017-11-27] MEDS: LEVOTHYROXINE 50MCG TABLET (0.05MG) PO (09:20)
[2017-11-27] MEDS: INDAPAMIDE 1.25MG TABLET PO (09:21)
[2017-11-27] MEDS: ASPIRIN 81 MG ENTERIC TAB PO (09:22)
== END 2017-11-27 10:45 | disposition home or self-care (01) | DRG 253 ==
LOC: M ED INP 11-24 03:03 → M MS5PR 11-26 14:19 → M PCU 11-24 16:51 → M ED 14:47
PROC: 0DD58ZX Extraction of Esophagus, Via Natural or Artificial Opening Endoscopic, Diagnostic (ICD-10-PCS; principal; 2017-11-25 13:00)
PROC: 0W3P8ZZ Control Bleeding in Gastrointestinal Tract, Via Natural or Artificial Opening Endoscopic (ICD-10-PCS; 2017-11-25 13:00)
DX: K55.21 Angiodysplasia of colon with hemorrhage (principal); I50.31 Acute diastolic (congestive) heart failure; B37.81 Candidal esophagitis; C34.90 Malignant neoplasm of unspecified part of unspecified bronchus or lung; D50.0 Iron deficiency anemia secondary to blood loss (chronic); F17.210 Nicotine dependence, cigarettes, uncomplicated; J44.9 Chronic obstructive pulmonary disease, unspecified; N18.3 Chronic kidney disease, stage 3 (moderate); I13.0 Hypertensive heart and chronic kidney disease with heart failure and stage 1 through stage 4 chronic kidney disease, or unspecified chronic kidney disease; R68.81 Early satiety; K21.9 Gastro-esophageal reflux disease without esophagitis; E78.5 Hyperlipidemia, unspecified; K64.8 Other hemorrhoids; K64.4 Residual hemorrhoidal skin tags; D12.5 Benign neoplasm of sigmoid colon; E03.9 Hypothyroidism, unspecified; I25.10 Atherosclerotic heart disease of native coronary artery without angina pectoris; I71.4 Abdominal aortic aneurysm, without rupture; E78.00 Pure hypercholesterolemia, unspecified; Z85.51 Personal history of malignant neoplasm of bladder; Z85.46 Personal history of malignant neoplasm of prostate; Z79.51 Long term (current) use of inhaled steroids; Z79.52 Long term (current) use of systemic steroids; Z79.82 Long term (current) use of aspirin; Z92.21 Personal history of antineoplastic chemotherapy; Z92.3 Personal history of irradiation; Z79.2 Long term (current) use of antibiotics; Z79.899 Other long term (current) drug therapy; Z79.02 Long term (current) use of antithrombotics/antiplatelets

== ENCOUNTER → 2017-11-23 | Outpatient (REF) | payer BC ==
[2017-11-23 18:55] LABS: HEMATOCRIT 29.4 % (42.0-52.0); HEMOGLOBIN 8.8 g/dl (13.5-17.5); MEAN CORPUSCULAR HEMOGLOBIN 31.3 pg (27.0-33.0); MEAN CORPUSCULAR HGB CONC 29.9 g/dl (32.0-36.5); MEAN CORPUSCULAR VOLUME 104.6 fl (80.0-96.0); PLATELET COUNT, AUTOMATED 189 10^3/uL (150-450); RED BLOOD COUNT 2.81 10^6/uL (4.30-6.10); RED CELL DISTRIBUTION WIDTH 17.7 % (11.5-14.5); WHITE BLOOD COUNT 8.8 10^3/uL (4.0-10.0)
[2017-11-23 20:20] LABS: FOLATE 17.6 NG/ML
[2017-11-23 23:52] LABS: FERRITIN 26 NG/ML (26-388); IRON (FE) 16 UG/DL (65-175); TOTAL IRON BINDING CAPACITY 291 UG/DL (250-450)
[2017-11-24 00:12] LABS: PERCENT SATURATION 5.5 % (19.7-50.0)
== END ==
LOC: M SFHCADAM 13:30
DX: D64.9 Anemia, unspecified (principal)
CPT/HCPCS: 82746

== ENCOUNTER → 2017-12-04 | Outpatient (REF) | payer BC ==
[2017-12-04 15:01] LABS: BASO # 0.1 10^3/uL (0.0-0.2); BASO % 0.8 % (0.0-1.0); EOS # 0.1 10^3/uL (0.0-0.50); EOS % 0.8 % (0.0-3.0); HEMATOCRIT 31.1 % (42.0-52.0); HEMOGLOBIN 9.4 g/dl (13.5-17.5); IMMATURE GRANULOCYTE % 0.2 % (0-3.0); LYMPH # 0.9 10^3/uL (1.5-4.5); LYMPH % 10.5 % (24.0-44.0); MEAN CORPUSCULAR HEMOGLOBIN 29.5 pg (27.0-33.0); MEAN CORPUSCULAR HGB CONC 30.2 g/dl (32.0-36.5); MEAN CORPUSCULAR VOLUME 97.5 fl (80.0-96.0); MONO # 0.5 10^3/uL (0.0-0.8); MONO % 5.6 % (0.0-5.0); NEUTROPHILS # 6.8 10^3/uL (1.8-7.7); NEUTROPHILS % 82.1 % (36.0-66.0); PLATELET COUNT, AUTOMATED 196 10^3/uL (150-450); RED BLOOD COUNT 3.19 10^6/uL (4.30-6.10); WHITE BLOOD COUNT 8.3 10^3/uL (4.0-10.0)
[2017-12-04 16:05] LABS: ALBUMIN 3.4 GM/DL (3.2-5.2); ANION GAP 6 MEQ/L (8-16); BLOOD UREA NITROGEN 24 MG/DL (7-18); CALCIUM LEVEL 8.6 MG/DL (8.8-10.2); CARBON DIOXIDE LEVEL 29 MEQ/L (21-32); CHLORIDE LEVEL 106 MEQ/L (98-107); CREATININE FOR GFR 1.56 MG/DL (0.70-1.30); GLOMERULAR FILTRATION RATE 45.9 (>42); GLUCOSE, FASTING 85 MG/DL (70-100); PHOSPHORUS LEVEL 2.9 MG/DL (2.5-4.9); POTASSIUM SERUM 4.6 MEQ/L (3.5-5.1); SODIUM LEVEL 141 MEQ/L (136-145)
== END ==
LOC: M SFHCADAM 13:19
DX: N18.9 Chronic kidney disease, unspecified (principal); I25.10 Atherosclerotic heart disease of native coronary artery without angina pectoris
CPT/HCPCS: 80069

== ENCOUNTER → 2017-12-14 | Outpatient (REF) | payer BC | LOC: M LAB REF 12:31 | DX: R30.0 Dysuria (principal) | CPT/HCPCS: 87186 ==

== ENCOUNTER 2017-12-15 11:44 | Emergency (ER) | payer BC ==
[2017-12-15 12:56] LABS: BASO % 0.7 % (0.0-1.0); EOS # 0.1 10^3/uL (0.0-0.50); EOS % 1.5 % (0.0-3.0); HEMOGLOBIN 11.3 g/dl (13.5-17.5); IMMATURE GRANULOCYTE % 0.2 % (0-3.0); LYMPH # 0.4 10^3/uL (1.5-4.5); LYMPH % 8.9 % (24.0-44.0); MEAN CORPUSCULAR HEMOGLOBIN 30.3 pg (27.0-33.0); MEAN CORPUSCULAR HGB CONC 31.4 g/dl (32.0-36.5); MEAN CORPUSCULAR VOLUME 96.5 fl (80.0-96.0); MONO # 0.5 10^3/uL (0.0-0.8); NEUTROPHILS # 3.6 10^3/uL (1.8-7.7); NEUTROPHILS % 78.7 % (36.0-66.0); PLATELET COUNT, AUTOMATED 166 10^3/uL (150-450); RED BLOOD COUNT 3.73 10^6/uL (4.30-6.10); RED CELL DISTRIBUTION WIDTH 18.2 % (11.5-14.5); WHITE BLOOD COUNT 4.6 10^3/uL (4.0-10.0)
[2017-12-15] MEDS: IPRATROPIUM 0.5MG/ALBUTEROL 2.5MG INH SOL UD 3ML (DUONEB)(J7620) NEB ×2 (13:04)
[2017-12-15 13:25] LABS: ANION GAP 10 MEQ/L (8-16); BLOOD UREA NITROGEN 27 MG/DL (7-18); CARBON DIOXIDE LEVEL 24 MEQ/L (21-32); CHLORIDE LEVEL 108 MEQ/L (98-107); CPK CREATINE PHOSPHOKINASE 75 U/L (39-308); CREATININE FOR GFR 1.55 MG/DL (0.70-1.30); GLOMERULAR FILTRATION RATE 46.3 (>42); GLUCOSE, FASTING 94 MG/DL (70-100); NT-PRO BNP 3484 PG/ML (<450); POTASSIUM SERUM 4.4 MEQ/L (3.5-5.1); SODIUM LEVEL 142 MEQ/L (136-145); TROPONIN I 0.02 NG/ML (< 0.10)
[2017-12-15] MEDS: methylPREDNISolone INJ 125 MG/2 ML VIAL (J2930) IV (14:01)
== END 2017-12-15 14:07 | disposition home or self-care (01) ==
LOC: M ED 11:44
DX: J44.1 Chronic obstructive pulmonary disease with (acute) exacerbation (principal); D64.9 Anemia, unspecified; C34.90 Malignant neoplasm of unspecified part of unspecified bronchus or lung; R94.31 Abnormal electrocardiogram [ECG] [EKG]; F17.200 Nicotine dependence, unspecified, uncomplicated; Z79.899 Other long term (current) drug therapy
CPT/HCPCS: J2930

== ENCOUNTER → 2018-01-08 | Outpatient (CLI) | payer BC | LOC: M RAD 06:57 | DX: I71.4 Abdominal aortic aneurysm, without rupture (principal) | CPT/HCPCS: 76775 ==

== ENCOUNTER → 2018-05-06 | Outpatient (CLI) | payer BC ==
[~2018-05-06] MED LIST changes: -AMLO5TAB2 PO; +AMLO5TAB6 PO; +AMOX-CLAV; +AMOX875T2 PO; +FERR1TAB8 PO; +FLUC10TA PO; +INDA125TA PO; +IPRA0.00 IN; -IPRASOL4 IN; +LEVO50TA5 PO; +LISI40TA PO; +MUCI600T37 PO; -PANT40TA2 PO; +PANT40TA3 PO; -PROAAER10 IN; +PROAAER10 INH; +VITMTA PO
--- NOTE | 2018-05-06 13:47 | REP ---
Chest three views to PA and single lateral views: Comparison is 12/15/2017. There is diffuse mild interstitial coarsening as an interval change suggestive of pulmonary vascular engorgement. There is discoid atelectasis in the left lung as an interval change. There are no focal infiltrates. No pleural effusions are identified. Lung eng again appear hyperinflated, as previously. Cardiac size is upper normal, unchanged. There are no masses or nodules. There is a right IJ central venous [id number] with the tip in the superior vena cava in satisfactory location, unchanged. Impression: Vascular engorgement as an interval change. Discoid atelectasis in the left lung as an interval change. [id number], unchanged. Half Electronically Signed by Ralf Mcdaniel MD 05/06/2018 01:38 P
== END ==
LOC: M ADAMS 13:18
PROVIDERS: ATTEND Physician Assistant
DX: R06.02 Shortness of breath (principal)

== ENCOUNTER 2018-05-08 11:58 | Emergency (ER) | payer BC ==
[~2018-05-08] VITALS: Ht 177.8 cm; Wt 78.2 kg
[2018-05-08 12:37] LABS: HEMATOCRIT 35.5 % (42.0-52.0); HEMOGLOBIN 11.8 g/dl (13.5-17.5); MEAN CORPUSCULAR HEMOGLOBIN 32.2 pg (27.0-33.0); MEAN CORPUSCULAR HGB CONC 33.2 g/dl (32.0-36.5); PLATELET COUNT, AUTOMATED 150 10^3/uL (150-450); RED BLOOD COUNT 3.66 10^6/uL (4.30-6.10); WHITE BLOOD COUNT 19.8 10^3/uL (4.0-10.0)
[2018-05-08 12:48] LABS: INR 1.04; PROTHROMBIN TIME 13.7 SECONDS (12.1-14.4)
[2018-05-08 12:49] LABS: PARTIAL THROMBOPLASTIN TIME 30.9 SECONDS (25.4-37.6)
[2018-05-08 13:07] LABS: CALCIUM LEVEL 8.3 MG/DL (8.8-10.2); CREATININE FOR GFR 1.67 MG/DL (0.70-1.30); GLOMERULAR FILTRATION RATE 42.5 (>42); POTASSIUM SERUM 3.9 MEQ/L (3.5-5.1)
[2018-05-08 14:09] VITALS: BP 124/65
== END 2018-05-08 14:10 | disposition home or self-care (01) ==
LOC: M ED 11:58
DX: R31.9 Hematuria, unspecified (principal); I10 Essential (primary) hypertension; I50.9 Heart failure, unspecified; J44.9 Chronic obstructive pulmonary disease, unspecified; Z85.51 Personal history of malignant neoplasm of bladder; Z95.5 Presence of coronary angioplasty implant and graft; E61.1 Iron deficiency; Z79.82 Long term (current) use of aspirin; Z79.899 Other long term (current) drug therapy

== ENCOUNTER 2018-05-18 07:32 | Emergency (ER) | payer BC ==
[~2018-05-18] VITALS: Ht 177.8 cm; Wt 78.2 kg
[2018-05-18] MEDS ORDERED: LIDOCAINE 2% 5ML JELLY UROJET TOP ONE (08:00)
[2018-05-18 09:03] VITALS: BP 113/58
== END 2018-05-18 09:04 | disposition home or self-care (01) ==
LOC: M ED 07:32
DX: R33.9 Retention of urine, unspecified (principal); R31.9 Hematuria, unspecified; C67.9 Malignant neoplasm of bladder, unspecified; I50.9 Heart failure, unspecified; I10 Essential (primary) hypertension; E78.5 Hyperlipidemia, unspecified; J44.9 Chronic obstructive pulmonary disease, unspecified; Z95.5 Presence of coronary angioplasty implant and graft; Z72.0 Tobacco use; Z79.82 Long term (current) use of aspirin; Z79.899 Other long term (current) drug therapy

== ENCOUNTER 2018-05-18 12:57 | Emergency (ER) | payer BC ==
[~2018-05-18] VITALS: Ht 177.8 cm; Wt 78.2 kg
[2018-05-18] MEDS ORDERED: LIDOCAINE 2% 5ML JELLY UROJET TOP ONE (13:15)
[2018-05-18 17:55] VITALS: BP 150/68
== END 2018-05-18 18:00 | disposition home or self-care (01) ==
LOC: M ED 12:57
DX: T83.098A Other mechanical complication of other urinary catheter, initial encounter (principal); Y92.9 Unspecified place or not applicable; Y93.9 Activity, unspecified; C67.9 Malignant neoplasm of bladder, unspecified; Z85.46 Personal history of malignant neoplasm of prostate; J44.9 Chronic obstructive pulmonary disease, unspecified; Z95.5 Presence of coronary angioplasty implant and graft; Z72.0 Tobacco use; Z79.82 Long term (current) use of aspirin; Z79.899 Other long term (current) drug therapy

== ENCOUNTER → 2018-08-26 | Outpatient (REF) | payer BC ==
[~2018-08-26] MED LIST changes: +PRED-351 PO; -PRED10TA PO
[2018-08-26 19:23] LABS: BASO # 0.1 10^3/uL (0.0-0.2); BASO % 1.5 % (0.0-1.0); EOS # 0.2 10^3/uL (0.0-0.50); EOS % 2.7 % (0.0-3.0); HEMATOCRIT 33.7 % (42.0-52.0); HEMOGLOBIN 10.8 g/dl (13.5-17.5); LYMPH % 13.5 % (24.0-44.0); MEAN CORPUSCULAR HEMOGLOBIN 31.2 pg (27.0-33.0); MEAN CORPUSCULAR VOLUME 97.4 fl (80.0-96.0); MONO # 0.4 10^3/uL (0.0-0.8); MONO % 5.2 % (0.0-5.0); NEUTROPHILS # 5.7 10^3/uL (1.8-7.7); NEUTROPHILS % 76.7 % (36.0-66.0); PLATELET COUNT, AUTOMATED 135 10^3/uL (150-450); RED BLOOD COUNT 3.46 10^6/uL (4.30-6.10); WHITE BLOOD COUNT 7.4 10^3/uL (4.0-10.0)
[2018-08-26 20:06] LABS: ALBUMIN 3.5 GM/DL (3.2-5.2); BILIRUBIN,TOTAL 0.3 MG/DL (0.2-1.0); CALCIUM LEVEL 8.3 MG/DL (8.8-10.2); CREATININE FOR GFR 1.48 MG/DL (0.70-1.30); FREE T4 1.16 NG/DL (0.76-1.46); GLOMERULAR FILTRATION RATE 48.8 (>42); POTASSIUM SERUM 4.1 MEQ/L (3.5-5.1); THYROID STIMULATING HORMONE 2.35 uIU/ML (0.358-3.740); TOTAL PROTEIN 6.5 GM/DL (6.4-8.2)
== END ==
LOC: M SFHCADAM 15:04
PROVIDERS: ATTEND Physician Assistant Medical
DX: E03.9 Hypothyroidism, unspecified (principal); N18.3 Chronic kidney disease, stage 3 (moderate)

== ENCOUNTER → 2018-12-01 | Outpatient (REF) | payer BC | LOC: M LAB REF 19:37 | PROVIDERS: ATTEND Physician Assistant | DX: N39.0 Urinary tract infection, site not specified (principal) ==